=== PATIENT | female | born 1980 | race Caucasian/White ===

== ENCOUNTER 2022-01-27 15:08 | Outpatient (CLI) | payer BC | END 2022-01-27 15:09 | disposition home or self-care (01) | LOC: LABBT 15:08 | PROVIDERS: ATTEND Internal Medicine Gastroenterology | DX: K21.9 Gastro-esophageal reflux disease without esophagitis (principal); K92.1 Melena; Z20.822 Contact with and (suspected) exposure to COVID-19 | CPT/HCPCS: 87811 ==

== ENCOUNTER 2022-01-31 09:25 | Day surgery (SDC) | payer BC ==
[2022-01-28 08:47] VITALS: BMI 46.4
[2022-01-31] MEDS ORDERED: PROPOFOL 200 MG/20 ML VIAL ONE (11:26)
[2022-01-31] MEDS ORDERED: Labetalol HCl 100 MG/20 ML VIAL ONE (11:26)
== END 2022-01-31 12:34 | disposition home or self-care (01) ==
LOC: SDC 09:25
PROVIDERS: ATTEND Internal Medicine Gastroenterology
PROC: 0DJD8ZZ Inspection of Lower Intestinal Tract, Via Natural or Artificial Opening Endoscopic (ICD-10-PCS; principal; 2022-01-31)
DX: K92.1 Melena (principal); K64.0 First degree hemorrhoids; K21.9 Gastro-esophageal reflux disease without esophagitis; I10 Essential (primary) hypertension; E78.00 Pure hypercholesterolemia, unspecified; F17.210 Nicotine dependence, cigarettes, uncomplicated; Z79.899 Other long term (current) drug therapy; Z88.8 Allergy status to other drugs, medicaments and biological substances
CPT/HCPCS: J2704